=== PATIENT | male | born 1980 | race African-American/Black ===

== ENCOUNTER 2018-12-13 16:39 | Emergency (ER) | payer OTHER ==
[~2018-12-13] VITALS: Ht 167.6 cm; Wt 63.6 kg
[2018-12-13 19:12] VITALS: BP 123/74
== END 2018-12-13 19:25 | disposition home or self-care (01) ==
LOC: EMS 16:39
DX: S63.601A Unspecified sprain of right thumb, initial encounter (principal); S63.602A Unspecified sprain of left thumb, initial encounter; F12.90 Cannabis use, unspecified, uncomplicated; Y04.0XXA Assault by unarmed brawl or fight, initial encounter; Y93.89 Activity, other specified; Y92.89 Other specified places as the place of occurrence of the external cause; Y99.8 Other external cause status

== ENCOUNTER 2019-04-27 11:33 | Emergency (ER) | payer OTHER ==
[~2019-04-27] VITALS: Ht 157.5 cm; Wt 65.9 kg
[2019-04-27 12:36] VITALS: BP 134/82
[2019-04-27 13:40] LABS: GLUCOSE,POINT OF CARE 90 MG/DL (70-110)
== END 2019-04-27 14:07 | disposition home or self-care (01) ==
LOC: EMS 11:33
DX: S63.601A Unspecified sprain of right thumb, initial encounter (principal); S46.911A Strain of unspecified muscle, fascia and tendon at shoulder and upper arm level, right arm, initial encounter; F12.90 Cannabis use, unspecified, uncomplicated; W18.39XA Other fall on same level, initial encounter; Y93.89 Activity, other specified; Y92.89 Other specified places as the place of occurrence of the external cause; Y99.8 Other external cause status

== ENCOUNTER 2021-10-10 17:16 | Emergency (ER) | payer OTHER ==
[~2021-10-10] VITALS: Ht 167.6 cm; Wt 54.5 kg
[2021-10-10] MEDS ORDERED: BARIUM SULFATE 0.1% SUSPENSION 450 ML BOTTLE PO ONE (18:30)
[2021-10-10] MEDS ORDERED: ONDANSETRON HCL 4 MG/2 ML VIAL IVP ONE (18:30)
[2021-10-10 18:42] LABS: BASOPHILS % (AUTO) 1.2 % (0.0-2.0); EOSINOPHILS % (AUTO) 3.6 % (1.0-6.0); HEMATOCRIT 45.3 % (41-53); HEMOGLOBIN 15.3 g/dL (13.5-17.5); LYMPHOCYTES # (AUTO) 3.4 K/uL (1.0-4.8); LYMPHOCYTES % (AUTO) 45.2 % (22.0-44.0); MEAN CORPUSCULAR HEMOGLOBIN 29.9 pg (26.0-34.0); MEAN CORPUSCULAR HGB CONC 33.7 G/dL (31.0-37.0); MEAN CORPUSCULAR VOLUME 89 fL (80-100); MONOCYTES # (AUTO) 0.6 K/uL (0.1-1.0); MONOCYTES % (AUTO) 7.6 % (2.0-9.0); NEUTROPHILS # (AUTO) 3.1 K/uL (1.8-7.7); NEUTROPHILS % (AUTO) 42.4 % (40.0-70.0); PLATELET COUNT (AUTO) 329 K/uL (150-450)
[2021-10-10 18:51] LABS: ANION GAP 10 mmol/L (8-16); CALCIUM, TOTAL 9.2 mg/dL (8.8-10.5); CARBON DIOXIDE 30 mmol/L (22-29); CHLORIDE 101 mmol/L (98-107); CREATININE 0.97 mg/dL (0.60-1.30); GLOMERULAR FILTR. RATE CALC > 60 mL/min (>60); GLUCOSE,RANDOM 87 mg/dL (70-110); POTASSIUM 3.7 mmol/L (3.5-5.1); SODIUM SERUM 141 mmol/L (136-145); UREA NITROGEN, BLOOD 12 mg/dL (7-18)
[2021-10-10 18:56] LABS: ALANINE AMINOTRANSFERASE 26 U/L (12-78); ALBUMIN 4.2 g/dL (3.4-5.0); ALKALINE PHOSPHATASE 153 U/L (46-116); ASPARTATE AMINOTRANSFERASE 19 U/L (15-37); BILIRUBIN,TOTAL 0.2 mg/dL (0.1-1.0); LIPASE 408 U/L (73-393); TOTAL PROTEIN, SERUM 8.9 g/dL (6.4-8.2)
[2021-10-10 18:57] LABS: APPEARANCE,URINE CLEAR (CLEAR); BILIRUBIN,URINE NEGATIVE (NEGATIVE); GLUCOSE, URINE (UA) NEGATIVE (NEGATIVE); KETONES,URINE NEGATIVE (NEGATIVE); LEUKOCYTE ESTERASE ,URINE NEGATIVE (NEGATIVE); NITRATE,URINE NEGATIVE (NEGATIVE); OCCULT BLOOD,URINE TRACE (NEGATIVE); PH,URINE 6.5 (5.0-8.0); PROTEIN,URINE TRACE mg/dL (NEGATIVE); SPECIFIC GRAVITIY, URINE 1.017 (1.003-1.030); UROBILINOGEN,URINE <=1.0 mg/dL (<=1.0)
[2021-10-10 19:27] LABS: BACTERIA,URINE Rare /HPF (None Seen); SQUAMOUS EPITHELIAL CELL,UR Rare /LPF (None Seen); WBC,URINE 0-2 /HPF (0-5)
[2021-10-11] MEDS ORDERED: IBUP-1554 PO (03:15)
[2021-10-11] MEDS ORDERED: ACET-2080 PO (03:15)
[2021-10-11 04:14] VITALS: BP 124/61
== END 2021-10-11 04:13 | disposition home or self-care (01) ==
LOC: EMS 17:32
DX: K40.90 Unilateral inguinal hernia, without obstruction or gangrene, not specified as recurrent (principal)
CPT/HCPCS: 36415; 74176; 76870; 80053; 81001; 83690; 85025; 96374; 99284; J2405; Q9967